=== PATIENT | female | born 1965 | race Caucasian/White ===

== ENCOUNTER 2019-10-13 13:52 | Emergency (ER) | payer MEDICAID ==
[~2019-10-13] VITALS: Ht 165.1 cm; Wt 77.0 kg
[~2019-10-13 13:52] MED LIST: ASPI-1053 PO; AZIT250T PO; CHOL2000 PO; INSU100V12 SQ; METF-436 PO; NORG1TAB23 PO; NOVOLOG; OMEP-84 PO; PHEN-786 PO
[2019-10-13] MEDS ORDERED: AZIT-72 PO (15:03)
[2019-10-13 15:27] VITALS: BP 140/95
== END 2019-10-13 15:32 | disposition home or self-care (01) ==
LOC: ER 13:52
DX: H66.91 Otitis media, unspecified, right ear (principal); J02.9 Acute pharyngitis, unspecified; I10 Essential (primary) hypertension; J45.909 Unspecified asthma, uncomplicated; K21.9 Gastro-esophageal reflux disease without esophagitis; E11.9 Type 2 diabetes mellitus without complications; F41.9 Anxiety disorder, unspecified; Z87.442 Personal history of urinary calculi; Z04.9 Encounter for examination and observation for unspecified reason; Z98.51 Tubal ligation status; Z88.8 Allergy status to other drugs, medicaments and biological substances; Z88.0 Allergy status to penicillin; Z88.5 Allergy status to narcotic agent; Z79.82 Long term (current) use of aspirin; Z79.899 Other long term (current) drug therapy
CPT/HCPCS: 99283

== ENCOUNTER 2020-04-16 08:12 | Emergency (ER) | payer MEDICAID ==
[~2020-04-16] VITALS: Ht 165.1 cm; Wt 77.3 kg
[2020-04-16 08:21] VITALS: BP 135/105
[2020-04-16] MEDS ORDERED: PRED20TA PO (09:36)
[2020-04-16] MEDS ORDERED: SULF1TAB49 PO (10:04)
== END 2020-04-16 10:23 | disposition home or self-care (01) ==
LOC: ER 08:13
DX: J20.9 Acute bronchitis, unspecified (principal); H66.90 Otitis media, unspecified, unspecified ear; J45.909 Unspecified asthma, uncomplicated; I10 Essential (primary) hypertension; E11.9 Type 2 diabetes mellitus without complications; F41.9 Anxiety disorder, unspecified; I49.9 Cardiac arrhythmia, unspecified; K21.9 Gastro-esophageal reflux disease without esophagitis; Z87.442 Personal history of urinary calculi; Z98.890 Other specified postprocedural states; Z98.51 Tubal ligation status; Z88.0 Allergy status to penicillin; Z88.1 Allergy status to other antibiotic agents; Z88.8 Allergy status to other drugs, medicaments and biological substances; Z88.5 Allergy status to narcotic agent; Z79.899 Other long term (current) drug therapy; Z79.82 Long term (current) use of aspirin; Z79.84 Long term (current) use of oral hypoglycemic drugs
CPT/HCPCS: 71045; 99283

== ENCOUNTER 2020-10-16 02:59 | Emergency (ER) | payer MEDICAID ==
[~2020-10-16] VITALS: Ht 165.1 cm; Wt 76.6 kg
[2020-10-16 03:02] VITALS: BP 169/91
--- NOTE | 2020-10-16 03:29 | NUR ---
Patient has dental appointent November 17, 2020 but has pain that is not responding to Tylenol and has rx for codeine and ultram from other surgeries that she states she has allergies to both of these medications. Current pain level 10/10. Right upper teeth, 2.
== END 2020-10-16 04:45 | disposition home or self-care (01) ==
LOC: ER 02:59
DX: K08.89 Other specified disorders of teeth and supporting structures (principal); K02.9 Dental caries, unspecified; I10 Essential (primary) hypertension; J45.909 Unspecified asthma, uncomplicated; K21.9 Gastro-esophageal reflux disease without esophagitis; E11.9 Type 2 diabetes mellitus without complications; F41.9 Anxiety disorder, unspecified; Z87.442 Personal history of urinary calculi; Z90.49 Acquired absence of other specified parts of digestive tract; Z98.51 Tubal ligation status; Z98.890 Other specified postprocedural states; Z88.8 Allergy status to other drugs, medicaments and biological substances; Z88.0 Allergy status to penicillin; Z88.7 Allergy status to serum and vaccine; Z88.5 Allergy status to narcotic agent; Z79.82 Long term (current) use of aspirin; Z79.899 Other long term (current) drug therapy
CPT/HCPCS: 99282

== ENCOUNTER 2021-12-25 03:02 | Emergency (ER) | payer MEDICAID ==
[~2021-12-25] VITALS: Ht 165.1 cm; Wt 75.9 kg
[2021-12-25 03:05] VITALS: BP 160/85
== END 2021-12-25 06:43 | disposition left against medical advice (07) ==
LOC: ER 03:03
DX: M79.603 Pain in arm, unspecified (principal); Z53.21 Procedure and treatment not carried out due to patient leaving prior to being seen by health care provider

== ENCOUNTER 2023-01-11 01:48 | Emergency (ER) | payer MEDICAID ==
[~2023-01-11] VITALS: Ht 166.4 cm; Wt 69.6 kg
[2023-01-11 02:14] VITALS: BP 147/84; PULSE 94; RESP 18; TEMP 97.7; O2SAT 100
[2023-01-11 02:24] LABS: BASOPHILS # (AUTO) 0.1 X10'3 (0-0.2); BASOPHILS % (AUTO) 0.6 % (0-1); EOSINOPHILS # (AUTO) 0.2 X10'3 (0-0.9); EOSINOPHILS % (AUTO) 1.7 % (0-6); HEMATOCRIT 38.4 % (35.0-45.0); HEMOGLOBIN 12.2 g/dl (12.0-16.0); LYMPHOCYTES # (AUTO) 4.6 X10'3 (1.1-4.8); LYMPHOCYTES % (AUTO) 44.7 % (21-51); MEAN CORPUSCULAR HEMOGLOBIN 21.7 PG (27.0-31.0); MEAN CORPUSCULAR HGB CONC 31.8 g/dL (33.0-36.5); MEAN CORPUSCULAR VOLUME 68.4 FL (78-98); MONOCYTES % (AUTO) 9.3 % (2-12); NEUTROPHILS # (AUTO) 4.5 X10'3 (1.8-7.7); NEUTROPHILS % (AUTO) 43.7 % (42-75); PLATELET COUNT 318 X10'3 (140-440); RED BLOOD COUNT 5.62 X10'6 (4.20-5.60); RED CELL DISTRIBUTION WIDTH 18.5 % (11.5-14.5); WHITE BLOOD COUNT 10.3 X10'3 (4.5-11.0)
[2023-01-11 02:32] LABS: APTT 27 SECONDS (22-32); INR 0.9 INR; PROTHROMBIN TIME 10.2 SECONDS (9.0-12.0)
[2023-01-11 02:34] LABS: ALANINE AMINOTRANSFERASE 20 U/L (12-78); ALBUMIN 3.9 G/DL (3.4-5.0); ALBUMIN/GLOBULIN RATIO 0.9 (1.1-1.5); ALKALINE PHOSPHATASE 139 IU/L (46-116); ANION GAP 9 (8-16); ASPARTATE AMINO TRANSFERASE 13 U/L (10-37); BILIRUBIN,TOTAL 0.3 MG/DL (0.1-1.0); BLOOD UREA NITROGEN 13 MG/DL (7-18); BUN/CREATININE RATIO 14.3 (10.0-20.0); CALCIUM 9.9 MG/DL (8.5-10.1); CHLORIDE 99 MMOL/L (99-107); CREATININE 0.91 MG/DL (0.40-0.90); GLUCOSE 219 MG/DL (70-104); POTASSIUM 3.8 MMOL/L (3.5-5.1); SODIUM 138 MMOL/L (135-145); TOTAL CARBON DIOXIDE 30.1 MMOL/L (24-32); TOTAL PROTEIN 8.3 G/DL (6.4-8.2); eCRCL 62 ML/MIN; eGFR 63 ML/MIN
[2023-01-11 03:10] LABS: ANISOCYTOSIS 2+; MICROCYTOSIS 2+; PLATELET ESTIMATE NORMAL
[2023-01-11] MEDS ORDERED: ANUHCCR RC (04:14)
== END 2023-01-11 04:21 | disposition home or self-care (01) ==
LOC: ER 01:48
DX: K64.8 Other hemorrhoids (principal); R42 Dizziness and giddiness; I10 Essential (primary) hypertension; K21.9 Gastro-esophageal reflux disease without esophagitis; E11.9 Type 2 diabetes mellitus without complications; F31.9 Bipolar disorder, unspecified; Z90.49 Acquired absence of other specified parts of digestive tract; Z79.899 Other long term (current) drug therapy; Z79.1 Long term (current) use of non-steroidal anti-inflammatories (NSAID)
CPT/HCPCS: 36415; 80053; 85008; 85025; 85610; 85730; 86885; 86900; 86901; 93005; 99284